=== PATIENT | male | born 1985 | race Asian ===

== ENCOUNTER 2022-10-02 07:15 | Emergency (ER) | payer OTHER ==
[2022-10-02] MEDS ORDERED: Dextrose 5%-Lact Ringers w/KCl 1,000 ML IV SCH (07:30)
[2022-10-02 07:35] LABS: BASOPHILS ABSOLUTE AUTO 0.02 K/mm3 (0.01-0.08); BASOPHILS PERCENT AUTO 0.1 % (0.1-1.2); EOSINOPHILS ABSOLUTE AUTO 0.23 K/mm3 (0.04-0.54); EOSINOPHILS PERCENT AUTO 1.6 (0.8-7.0); HEMATOCRIT 44.4 % (40.1-51.0); HEMOGLOBIN 15.5 gm/dl (13.7-17.5); IMMATURE GRAN ABSOLUTE AUTO 0.03 K/mm3 (0.00-0.10); IMMATURE GRAN PERCENT AUTO 0.2 % (<=1.0); LYMPHOCYTES ABSOLUTE AUTO 2.71 K/mm3 (1.32-3.57); LYMPHOCYTES PERCENT AUTO 18.6 % (21.8-53.1); MEAN CORPUSCULAR HEMOGLOBIN 26.9 pg (25.7-32.2); MEAN CORPUSCULAR HGB CONC 34.9 g/dl (32.2-35.5); MEAN CORPUSCULAR VOLUME 77.1 fl (79.0-92.2); MEAN PLATELET VOLUME 11.3 fl (9.4-12.3); MONOCYTES PERCENT AUTO 4.1 % (5.3-12.2); NEUTROPHILS ABSOLUTE AUTO 10.99 K/mm3 (1.78-5.38); NEUTROPHILS PERCENT AUTO 75.4 % (34.0-67.9); PLATELET COUNT,PLT 316 K/mm3 (163-337); RED BLOOD CELL COUNT 5.76 M/mm3 (4.63-6.08); WHITE BLOOD CELL COUNT,WBC 14.58 K/mm3 (4.23-9.07)
[2022-10-02 07:46] LABS: A/G RATIO 0.7 (1-2); ALANINE AMINOTRANSFERASE,ALT 41 U/L (16-63); ALBUMIN 3.5 g/dl (3.4-5.0); ALKALINE PHOSPHATASE 113 U/L (46-116); ANION GAP 15.4 (5-15); ASPARTATE AMNIOTRANSFERASE,AST 22 U/L (15-37); BILIRUBIN TOTAL 0.5 mg/dL (0.2-1.0); BLOOD UREA NITROGEN,BUN 11 mg/dL (7-18); BUN/CREATININE RATIO 12.2 (14-18); CALCIUM 9.3 mg/dL (8.5-10.1); CARBON DIOXIDE,CO2 19 mEq/L (21-32); CHLORIDE,CL 106 mEq/L (98-107); CREATININE 0.9 mg/dL (0.7-1.3); ESTIMATED GFR 112 mL/min (>60); GLUCOSE RANDOM 158 mg/dL (70-99); MAGNESIUM 1.6 mg/dL (1.8-2.4); PROTEIN TOTAL,TP 8.2 g/dl (6.4-8.2); SODIUM,NA 139 mEq/L (136-145)
[2022-10-02 07:53] LABS: POTASSIUM,K 1.4 mEq/L (3.5-5.1)
[2022-10-02 08:15] LABS: T4 FREE 1.69 ng/dL (0.76-1.46)
[2022-10-02 08:58] LABS: TSH < 0.007 uIU/mL (0.358-3.74)
[2022-10-02] MEDS ORDERED: Sodium Chloride 0.9% 1,000 ML IV SCH (09:00)
[2022-10-02] MEDS ORDERED: Potassium Chloride 20 MEQ Tab.ER PO ONE (09:02)
[2022-10-02] MEDS: Potassium Chloride 10 MEQ in Premix Bag 1 BAG IV SCH ×6 (09:30→15:35)
[2022-10-02] MEDS ORDERED: Metoclopramide 10 MG/2 ML SDV IVPUSH ONE (09:38)
[2022-10-02] MEDS ORDERED: Magnesium Sulfate/Water 2 GM in Premix Bag 1 BAG IV ONE (11:30)
[2022-10-02] MEDS ORDERED: Magnesium Sulfate/Water 2 GM in Premix Bag 1 BAG IV SCH (11:30)
[2022-10-02 16:01] LABS: ANION GAP 13.7 (5-15); CALCIUM 8.9 mg/dL (8.5-10.1); CREATININE 0.9 mg/dL (0.7-1.3); EST CRCL DRUG DOSING (CG) 104.05 mL/min; POTASSIUM,K 5.7 mEq/L (3.5-5.1)
== END 2022-10-02 17:52 | disposition home or self-care (01) ==
LOC: JD.ED 07:15
DX: E87.6 Hypokalemia (principal); E83.42 Hypomagnesemia; Z79.899 Other long term (current) drug therapy
CPT/HCPCS: 36415; 80048; 80053; 80307; 83605; 83735; 84439; 84443; 85025; 93005; 96361; 96365; 96366; 96367; 96375; 99285; A9270; J2765; J3475; J3480; J7030; 93010; 99283